=== PATIENT | female | born 1995 | race Caucasian/White ===

== ENCOUNTER 2023-03-15 13:01 | Outpatient (RCR) | payer BC, SELFPAY ==
[2023-03-13 12:05] LABS: Beta HCG Quantitative 108.93 mIU/ML
[2023-03-15 15:31] LABS: Beta HCG Quantitative 176.07 mIU/ML
== END 2023-06-11 23:59 | disposition home or self-care (01) ==
LOC: ANHLAB 13:01
PROVIDERS: Visit Provider Advanced Practice Midwife
DX: O20.0 Threatened abortion (principal); Z3A.00 Weeks of gestation of pregnancy not specified
CPT/HCPCS: 36415; 84702; 85461; 86850; 86900; 86901

== ENCOUNTER 2023-03-22 11:16 | Outpatient (CLI) | payer BC, SELFPAY ==
[2023-03-22 12:28] LABS: Beta HCG Quantitative 249.47 mIU/ML
== END 2023-03-22 11:17 | disposition home or self-care (01) ==
LOC: ANHLAB 11:19
PROVIDERS: Visit Provider Obstetrics & Gynecology
DX: O20.0 Threatened abortion (principal); Z3A.00 Weeks of gestation of pregnancy not specified
CPT/HCPCS: 36415; 84702

== ENCOUNTER 2023-03-24 12:03 | Outpatient (CLI) | payer BC, SELFPAY ==
[2023-03-24 12:45] LABS: Beta HCG Quantitative 101.59 mIU/ML
== END 2023-03-24 12:04 | disposition home or self-care (01) ==
LOC: ANHOBOP 12:05
PROVIDERS: Visit Provider Advanced Practice Midwife
DX: O20.0 Threatened abortion (principal)
CPT/HCPCS: 36415; 84702

== ENCOUNTER 2023-08-14 01:21 | Day surgery (SDC) | payer BC, SELFPAY ==
[2023-08-13 11:37] VITALS: BMI 33.1
--- NOTE | 2023-08-13 11:41 | PC.NURSE ---
Report to the Outpatient Waiting Room, entrance under the green pavilion located off [facility], at time 1100 on date 08/14/23. Planned Procedure Time: 1300. Time changes happen often and if your time is changed the preop area will call you the afternoon before. - You and your visitor will be asked to self-screen and do not enter if you have any COVID symptoms. - A mask is optional within the hospital at this time. Patients may have clear liquids (water, carbonated beverages, clear teas, apple juice) until 3 hours prior to surgery with a maximum of 20 ounces. - No food from midnight until time of surgery Take the following medications with a SIP of water the morning of surgery: N/A DO NOT STOP ANY OF YOUR OTHER PRESCRIPTION MEDICATIONS PRIOR TO SURGERY ?EXCEPT THE FOLLOWING Medications to discontinue per physician: N/A Date to take last dose: N/A Please no make-up, nail urdu, hairspray, perfume, deodorant, or body powder the day of surgery. No jewelry (including any body piercings) or valuables the day of surgery, leave them at home. Please take a shower or bath the night before, or the morning of, surgery with an antibacterial soap. Wear comfortable, loose fitting clothing. - Jewelry must be removed prior to entering the operating room. Rings and piercings that are not removed may be cut off. - The hospital will not accept responsibility for valuables. - Please leave all valuables, including medications, at home the day of surgery. If you are going home after surgery, a licensed wheelchair driver must drive you home. - NO public transportation without another adult if you receive anesthesia. - We recommend that an adult stay with you for 24 hours following discharge. - We also recommend that you do not drive, make important decision, drink alcoholic beverages, or take any drugs that were not prescribed by your health care provider for at least 24 hours after your discharge time. Follow any additional instructions given to you from your surgeon. If you or anyone in your household have experienced Covid symptoms in the past week, please notify your surgeon or the nurse liaison at the phone number below for possible testing. Telephone instructions given to PT - HARVEY FORTUNE and asked if any additional questions and then verbalized understanding. Patient advised to call surgeon office or pre surgery nurse liaison [phone] if any additional questions.
--- NOTE | 2023-08-14 11:06 | P.HP_ITS ---
H&P: HPI History of Present Illness Date/Time: 08/14/23 11:06 Chief Complaint: Missed miscarriage Narrative: Patient is a 27 year old who presents for suction D&C, indicated for missed miscarriage. She was diagnosed last week after an US demonstrated irregularly shaped gestational sac, no growth in size of embryo, and no FHR after having been visualized previously. She was counseled on r/b/a of expecta nt, medical, and surgical management, and desires to proceed with suction D&C. She denies bleeding, cramping, abdominal pain, fevers or chills today. She would like genetic testing performed on POC. Review of Systems Review of Systems: All systems reviewed & are unremarkable except as noted in HPI and below PMFSH Social History Social History Smoking status: Never smoker Alcohol intake: current Alcohol use details: RARE WHEN NOT Substance use: never Substance use type: does not use Living arrangements: with family Spiritual care concerns: No Meds Home Medications and Allergies Home Medications Medication Instructions Recorded Confirmed Type No Home Medications 08/13/23 08/13/23 History Allergies Allergy/AdvReac Type Severity Reaction Status Date / Time acetaminophen AdvReac Vomiting Verified 08/13/23 11:37 Exam Const: General: comfortable and no acute distress HENMT: Mouth: Yes moist mucous membranes Eyes: General: appearance normal, both eyes and all related structures Resp: Effort & Inspection: normal respiratory effort Cardio: Rate: regular rate Skin: General skin exam: normal color Extrem: General: normal to inspection Psych: Mental Status: mental status grossly normal Assessment and Plan Assessment and plan (1) Missed : Code(s): O02.1 - Missed Status: Acute Assessment and Plan: - diagnosed after US showed loss of FHR, no growth in FP - r/b/a of management options discussed - patient desires to proceed with suction D&C - will send POC for pathology and genetics
--- NOTE | 2023-08-14 13:00 | P.PNAN_ITS ---
Anes - Initial Pre Proc Eval Procedure: Operation Date: 08/14/23 13:00 Proposed Procedures p Suction Dilatation and Curettage - Micheal Pollock MD Date/Time: 08/14/23 13:00 Surgeon: Micheal Pollock MD Pre Op Diagnosis: missed ab Patient Data Age: 27 Gender: F Height: 1.63 m Weight: 87.55 kg Allergies Allergy/AdvReac Type Severity Reaction Status Date / Time acetaminophen AdvReac Vomiting Verified 08/13/23 11:37 Home Medications Medication Instructions Recorded Confirmed Type No Home Medications 08/13/23 08/13/23 History Patient hx anesthesia problems: none Family hx anesthesia problems: none Results Review: All pre-operative results and documents have been reviewed as part of the pre- operative evaluation. [facility] Social History Social History Smoking status: Never smoker Alcohol intake: current Alcohol use details: RARE WHEN NOT Substance use: never Substance use type: does not use Living arrangements: with family Spiritual care concerns: No Anes - Eval Final PreProcedure Day of Procedure 08/14/23 13:00 Patient weight: obese Heart: regular rate and rhythm Lungs: clear to auscultation Airway: Mallampati scale class II Neurological: alert and oriented Last oral intake: >/= 8 hours ASA classification: II Emergent: no Anesthetic plan: proceed Anesthesia type and monitoring: general GIVS and standard monitoring Results Review: All pre-operative results and documents have been reviewed as part of the pre- operative evaluation. Informed Consent: The patient's anesthetic plan and its attendant risks and benefits were discussed with the patient/family/POA. Questions were solicited and answers provided to the satisfaction of the patient/family/POA.
--- NOTE | 2023-08-14 13:30 | WPDHPUPDATE1 ---
History and Physical Update Update Date/Time: 08/14/23 13:30 History and Physical has been reviewed, including an updated exam of the patient. There are NO changes in the patient's condition. Risks, benefits, and alternatives have been discussed and questions answered. Patient agrees to proceed with procedure.
[2023-08-14 13:44] VITALS: BP 109/68; PULSE 75; RESP 16; TEMP 37.1; O2SAT 100; BMI 33.0
[2023-08-14] MEDS: LACTATED RINGERS 1,000 ML 30 ML IV CONT (13:48)
[2023-08-14] MEDS: LIDO 1%/EPINEPHRINE 1:100,000 50 ML VIAL 10 ML INFILTRATE (13:57)
--- NOTE | 2023-08-14 14:11 | W.PM.PROC2 ---
Procedure Note - Detailed Date of Procedure 08/14/23 Pre-op Diagnosis missed ab Post-op Diagnosis Same Procedure Performed suction D&C Surgeon Micheal Pollock MD Anesthesia MAC Description of Procedure The patient was then taken to the operating room with IVFs running. She was placed in the dorsal supine position where she received MAC anesthesia without any difficulty.?? The patient was placed in the dorsal lithotomy position using pam stirrups. She was then prepped and draped in a normal sterile fashion. A time-out procedure was performed and all members of the OR team agreed on the patient and plan. A bivalved speculum was then inserted into the patient's vagina.? The anterior lip of the cervix was grasped with a single tooth tenaculum. The 8mm suction curette was tested outside the patient and found to be working properly.? The curette was then advanced into the intrauterine cavity and circumferentially removed.? All products of conception were removed until little tissue was seen passing through the tubing.? A sharp curettage was then performed until a gritty texture was noted.? The specimen was sent to pathology.? The single tooth tenaculum was removed from the anterior lip of the cervix and made hemostatic with silver nitrite sticks.? The bivalve speculum was removed.? The patient tolerated the procedure well.? Sponge, lap, needle, and instrument counts were correct X3.? The patient was awakened from anesthesia and taken to the recovery room in stable condition. Estimated Blood Loss 30 Pathology Yes (pathology with genetics) Complications No immediate complications Condition Stable Disposition Same day
[2023-08-14 14:14] VITALS: BP 94/50; PULSE 93; RESP 16; O2SAT 96
[2023-08-14 14:45] VITALS: BP 95/54; PULSE 83; RESP 16
[2023-08-14 15:15] VITALS: BP 108/64; PULSE 79; RESP 16
[2023-08-14] MEDS: DOXYCYCLINE HYCLATE 100 MG TABLET PO (15:25)
== END 2023-08-14 15:34 | disposition home or self-care (01) ==
PROVIDERS: Visit Provider Obstetrics & Gynecology
PROC: (CPT 59820; principal; 2023-08-14 13:00)
DX: O02.1 Missed abortion (principal)
CPT/HCPCS: 59820; 36415; 85461; 86850; 86900; 86901; 88264; 88305; A9270; J2250; J2704; J3010; J7120

== ENCOUNTER 2023-10-08 12:44 | Observation (INO) | payer BC, SELFPAY ==
[2023-10-08] VITALS (9 sets, daily range): BP systolic 80–109; BP diastolic 42–64; PULSE 52–67; RESP 12–16; TEMP 36.2–36.7; O2SAT 93–100; BMI 32.5
--- NOTE | ~2023-10-08 | US_ITS ---
EXAMINATION: US pelvic complete w TV DATE: 10/08/2023 12:35 INDICATION: Vaginal bleeding TECHNIQUE: Multiple transabdominal and endovaginal sonographic images of the pelvis were obtained. COMPARISON: None. FINDINGS: The uterus measures 9.7 x 4.5 x 5.4 cm. The endometrial complex measures 15 mm in thickness. The pos terior margin of the endometrial complex is indistinct with heterogeneous mild increased myometrial e chogenicity in the more posterior uterine wall suspicious for focal adenomyomatosis. There are a few subcentimeter anechoic nabothian cysts at the cervix. The right ovary measures 3.8 x 2.2 x 3.5 cm. Th e left ovary measures 3.4 x 2.5 x 2.6 cm. Vascular flow identified at both ovaries on color Doppler. There are multiple subcentimeter peripherally predominant anechoic follicles in both ovaries suggesti ve of polycystic ovarian disease. There is no free fluid in the pelvis. IMPRESSION: 1. Endometrial complex at the upper limits of normal with indistinct posterior margin with heterogene ous increased echogenicity in the immediately adjacent myometrium of the posterior wall suspicious fo r focal adenomyosis. 2. Numerous peripheral predominant subcentimeter anechoic cysts at both ovaries suggestive of polycys tic ovarian disease. Reviewed, dictated and finalized at location A. IMPRESSION: 1. Endometrial complex at the upper limits of normal with indistinct posterior margin with heterogeneous increased echogenicity in the immediately adjacent my ometrium of the posterior wall suspicious for focal adenomyosis. 2. Numerous peripheral predominant subcentimeter anechoic cysts at both ovaries suggestive of polycystic ovarian disease.
[2023-10-08 10:24] LABS: Basophils Percent Auto 0.5 % (0.2-1.2); Eosinophils Absolute Auto 0.1 K/mm3 (0-0.3); Eosinophils Percent Auto 1.1 % (0-4.4); Hematocrit 37.1 % (37.0-47.0); Hemoglobin 12.2 g/dL (12.0-15.0); Immature Granulocyte Absolute 0.01 K/mm3 (0.00-0.031); Immature Granulocyte Percent A 0.2 % (0-0.5); Lymphocytes Absolute Auto 2.73 K/mm3 (0.9-3.2); Lymphocytes Percent Auto 41.3 % (18.3-44.2); Mean Corpuscular HGB Conc 32.9 g/dl (32-36); Mean Corpuscular Hemoglobin 28.7 pg (26-34); Mean Corpuscular Volume 87.3 fl (80-100); Mean Platelet Volume 11.3 fl (7.4-10.4); Monocytes Absolute Auto 0.3 K/mm3 (0.1-0.6); Monocytes Percent Auto 4.8 % (2.6-8.5); Neutrophils Absolute Auto 3.5 K/mm3 (1.3-6.7); Neutrophils Percent Auto 52.1 % (45.5-73.1); Platelet Count Result 250 k/mm3 (150-375); Red Blood Count 4.25 M/mm3 (4.2-5.4); White Blood Count 6.6 K/mm3 (4.5-10.0)
[2023-10-08 10:36] LABS: Alanine Aminotransferase 24 U/L (6-35); Albumin Level 4.7 g/dL (3.5-5.1); Alkaline Phosphatase 53 U/L (38-126); Anion Gap 6 mmol/L (4-12); Aspartate Amino Transferase 38 U/L (14-36); Bilirubin,Total 0.7 mg/dL (0.2-1.3); Blood Urea Nitrogen 12 mg/dL (7-17); Calcium 9.1 mg/dL (8.4-10.2); Carbon Dioxide 25 mmol/L (22-30); Chloride 106 mmol/L (98-107); Estimated Glomerular Filt Rate > 60; Glucose 98 mg/dL (65-110); Sodium 137 mmol/L (137-145)
[2023-10-08 10:52] LABS: Beta HCG Quantitative 11.22 mIU/ML
--- NOTE | 2023-10-08 10:52 | ADMGEN ---
This patient, Tessie Antonio, was admitted to Medical Room 251-01. Patient/family oriented to hospital policies and general routines including ID bracelet, bed and alarms, visiting hours, pain management, procedures, bathroom and other care routines, personal items, smoking policy, room service/diet, and visiting hours. Information on how to activate the Rapid Response Team has been discussed. Patient/Family are encouraged to report perceived risks to care and to ask questions if they do not understand what they are told or what they should do.
[2023-10-08] MEDS: LACTATED RINGERS 1,000 ML 999 ML IV CONT (12:38)
[2023-10-08] MEDS: LACTATED RINGERS 1,000 ML 100 ML IV CONT (13:45)
--- NOTE | 2023-10-08 15:08 | WPDANESEPPF ---
Anes - Initial Pre Proc Eval Procedure: Operation Date: 10/08/23 17:30 Proposed Procedures p Suction Dilatation and Curettage - Micheal Pollock MD Date/Time: 10/08/23 15:08 Surgeon: Micheal Pollock MD Pre Op Diagnosis: vagibal bleeding Patient Data Age: 27 Gender: F Height: 1.63 m Weight: 86 kg Last Vital Signs Temp 98.1 F 10/08/23 15:04 Pulse 60 10/08/23 15:04 Resp 16 10/08/23 15:04 BP 100/58 L 10/08/23 15:04 Pulse Ox 99 10/08/23 15:04 O2 Del Method Room Air 10/08/23 15:04 Allergies Allergy/AdvReac Type Severity Reaction Status Date / Time acetaminophen AdvReac Vomiting Verified 08/13/23 11:37 Home Medications Medication Instructions Recorded Confirmed Type No Home Medications 08/13/23 10/08/23 History Laboratory Tests 10/08/23 10:19 WBC 6.6 K/mm3 (4.5-10.0) RBC 4.25 M/mm3 (4.2-5.4) Hgb 12.2 g/dL (12.0-15.0) Hct 37.1 % (37.0-47.0) MCV 87.3 fl (80-100) MCH 28.7 pg (26-34) MCHC 32.9 g/dl (32-36) RDW 12.0 % (11.5-14.5) Plt Count 250 k/mm3 (150-375) MPV 11.3 H fl (7.4-10.4) Immature Gran % (Auto) 0.2 % (0-0.5) Neut % (Auto) 52.1 % (45.5-73.1) Lymph % (Auto) 41.3 % (18.3-44.2) Cocke % (Auto) 4.8 % (2.6-8.5) Eos % (Auto) 1.1 % (0-4.4) Baso % (Auto) 0.5 % (0.2-1.2) Lymph # (Auto) 2.73 K/mm3 (0.9-3.2) Cocke # (Auto) 0.3 K/mm3 (0.1-0.6) Eos # (Auto) 0.1 K/mm3 (0-0.3) Baso # (Auto) 0.0 K/mm3 (0.0-0.1) Abs Immat Gran (auto) 0.01 K/mm3 (0.00-0.031) Absolute Neuts (auto) 3.5 K/mm3 (1.3-6.7) Absolute Nucleated RBC 0.000 K/mm3 (0.0-0.012) Nucleated RBC % 0.0 % (0.0-0.2) Sodium 137 mmol/L (137-145) Potassium 4.0 mmol/L (3.4-5.0) Chloride 106 mmol/L (98-107) Carbon Dioxide 25 mmol/L (22-30) Anion Gap 6 mmol/L (4-12) BUN 12 mg/dL (7-17) Creatinine 0.70 mg/dL (0.7-1.0) Estim Creat Clear Calc Not Reportable Estimated GFR > 60 (59 - ) Glucose 98 mg/dL (65-110) Calcium 9.1 mg/dL (8.4-10.2) Total Bilirubin 0.7 mg/dL (0.2-1.3) AST 38 H U/L (14-36) ALT 24 U/L (6-35) Alkaline Phosphatase 53 U/L (38-126) Total Protein 8.0 g/dL (6.3-8.2) Albumin 4.7 g/dL (3.5-5.1) Beta HCG, Quant 11.22 mIU/ML Patient hx anesthesia problems: none Family hx anesthesia problems: none Results Review: All pre-operative results and documents have been reviewed as part of the pre-operative evaluation. [facility] Social History Social History Smoking status: Never smoker Alcohol intake: current Drinks per week: 0 Alcohol use details: RARE WHEN NOT Substance use: never Substance use type: does not use Do You Feel Safe in your Home?: Yes Lack of Transportation: No Lack of Food: Never True Current Housing: I Have Housing Concerned About Future Housing: No Difficulty Paying Gas/Electric Bills: No Difficulty Paying for Meds: No Currently Unemployed: No Education: Master's Degree or Higher Difficulty w/ Childcare or Family Care: No Living arrangements: with family Spiritual care concerns: No Anes - Eval Final PreProcedure Day of Procedure 10/08/23 15:08 Patient weight: overweight Heart: regular rate and rhythm Lungs: clear to auscultation Airway: Mallampati scale class II Neurological: alert and oriented Last oral intake: >/= 8 hours ASA classification: II Emergent: no Anesthetic plan: proceed Anesthesia type and monitoring: general GIVS and standard monitoring Results Review: All pre-operative results and documents have been reviewed as part of the pre-operative evaluation. Informed Consent: The patient's anesthetic plan and its attendant risks and benefits were discussed with the patient/family/POA. Questions were solicited and answers provided
--- NOTE | 2023-10-08 15:27 | PM.IMHP ---
H&P: HPI History of Present Illness Date/Time: 10/08/23 15:27 Chief Complaint: vaginal bleeding Narrative: Patient presents from the office for vaginal bleeding followng D&C in july. She has been followed with serial hCG and while decreasing, she started having heavy bleeding on Saturday, soaking 1 pad per hour. THis morning she reports passing out at home, some dizziness and lightheadedness over the past few days. Denies fevers or chills. Patient admitting for further evaluation and possible surgery. [facility] Social History Social History Smoking status: Never smoker Alcohol intake: current Drinks per week: 0 Alcohol use details: RARE WHEN NOT Substance use: never Substance use type: does not use Do You Feel Safe in your Home?: Yes Lack of Transportation: No Lack of Food: Never True Current Housing: I Have Housing Concerned About Future Housing: No Difficulty Paying Gas/Electric Bills: No Difficulty Paying for Meds: No Currently Unemployed: No Education: Master's Degree or Higher Difficulty w/ Childcare or Family Care: No Living arrangements: with family Spiritual care concerns: No Meds Home Medications and Allergies Home Medications Medication Instructions Recorded Confirmed Type No Home Medications 08/13/23 10/08/23 History Allergies Allergy/AdvReac Type Severity Reaction Status Date / Time acetaminophen AdvReac Vomiting Verified 08/13/23 11:37 Vital Signs Vital Signs - 24 hr 10/08/23 11:36 10/08/23 14:00 10/08/23 15:04 Temperature 97.6 F 98.1 F Pulse Rate 62 60 Respiratory Rate 14 16 Blood Pressure 109/64 100/58 L Pulse Oximetry 100 99 Oxygen Delivery Room Air Room Air Exam Const: General: comfortable and no acute distress HENMT: Mouth: Yes moist mucous membranes Eyes: General: appearance normal, both eyes and all related structures Resp: Effort & Inspection: normal respiratory effort Cardio: Rate: regular rate Skin: General skin exam: normal color Extrem: General: normal to inspection Psych: Mental Status: mental status grossly normal H&P: Results Labs Labs: Short CBC 10/08/23 Range/Units 10:19 WBC 6.6 (4.5-10.0) K/mm3 Hgb 12.2 (12.0-15.0) g/dL Hct 37.1 (37.0-47.0) % Plt Count 250 (150-375) k/mm3 BMP 10/08/23 10:19 Sodium 137 Potassium 4.0 Chloride 106 Carbon Dioxide 25 BUN 12 Creatinine 0.70 Glucose 98 Calcium 9.1 Liver Function 10/08/23 Range/Units 10:19 Total Bilirubin 0.7 (0.2-1.3) mg/dL AST 38 H (14-36) U/L ALT 24 (6-35) U/L Alkaline Phosphatase 53 (38-126) U/L Albumin 4.7 (3.5-5.1) g/dL Assessment and Plan Assessment and plan (1) Vaginal bleeding: Code(s): N93.9 - Abnormal uterine and vaginal bleeding, unspecified Status: Acute Assessment and Plan: - s/p D&C in July for missed Ab - bleeding worsened Saturday, soaking 1 pad per hour and with associated nausea and dizziness - exam wnl today in office - Hcg 11, downtrending - pelvic US with thickened and vascular endometrium, concerning for retained products - r/b/a of suction D&C discussed with patient who owuld like to proceed with surgery - surgery scheduled for today
--- NOTE | 2023-10-08 15:30 | WPDHPUPDATE1 ---
History and Physical Update Update Date/Time: 10/08/23 15:30 History and Physical has been reviewed, including an updated exam of the patient. There are NO changes in the patient's condition. Risks, benefits, and alternatives have been discussed and questions answered. Patient agrees to proceed with procedure.
[2023-10-08] MEDS: KETOROLAC 30 MG/ML VIAL (*BKC) IM (15:59)
[2023-10-08] MEDS: LACTATED RINGERS 1,000 ML 30 ML IV CONT (16:04)
--- NOTE | 2023-10-08 16:15 | W.PM.PROC2 ---
Procedure Note - Detailed Date of Procedure 10/08/23 Pre-op Diagnosis vaginal bleeding, dizziness Post-op Diagnosis Same Procedure Performed suction D&C Surgeon Micheal Pollock MD Anesthesia MAC Indications continued vaginal bleeding and thickened endometrium s/p D&C 08/14 Findings moderate amount of tissue removed with suction; normal thin endometrial stripe following procedure on ultrasound Description of Procedure The patient was then taken to the operating room with IVFs running. She was placed in the dorsal supine position where she received MAC anesthesia without any difficulty.?? The patient was placed in the dorsal lithotomy position using pam stirrups. She was then prepped and draped in a normal sterile fashion. A time-out procedure was performed and all members of the OR team agreed on the patient and plan. A bivalved speculum was then inserted into the patient's vagina.? The anterior lip of the cervix was grasped with a single tooth tenaculum. The 8mm suction curette was tested outside the patient and found to be working properly.? The curette was then advanced into the intrauterine cavity and circumferentially removed.? All products of conception were removed until little tissue was seen passing through the tubing.? A sharp curettage was then performed until a gritty texture was noted.?A bedside ultrasound was performed and the endometrial stripe was confirmed to be thin and homogenous. The specimen was sent to pathology.? The single tooth tenaculum was removed from the anterior lip of the cervix and made hemostatic with held pressure.? The bivalve speculum was removed.? The patient tolerated the procedure well.? Sponge, lap, needle, and instrument counts were correct X3.? The patient was awakened from anesthesia and taken to the recovery room in stable condition. Estimated Blood Loss 30 Pathology Yes (pathology with genetics) Complications No immediate complications Condition Stable Disposition Same day
--- NOTE | 2023-10-09 22:01 | PM.DS ---
DS: Admitting Diagnosis Discharge Date 10/08/23 Admitting Diagnosis vaginal bleeding DS: Discharge Diagnosis Discharge Diagnosis (1) Vaginal bleeding: Code(s): N93.9 - Abnormal uterine and vaginal bleeding, unspecified Status: Acute Assessment and Plan: - s/p D&C 08/14 - concern for retained products of conception vs thickened endometrium on US - after discussion of r/b/a patient agreeable to repeat suction D&C - patient tolerated the procedure well - d/c home postop DS: Summary Hospital Course Hospital Course: Patient was admitted from the office for heavy vaginal bleeding following D&C on 08/14. Bleeding started 10/01 and continued since that time, moderate to heavy in flow. She denies nausea, vomiting, fevers or chills. No abdominal pain. She was at home this morning and reports falling to the ground, however denies loss of consciousness. She was admitted for further workup. Although bloodwork was unremarkable, pelvic US demonstrated thickened and vascular endometrium, concerning for retained products of conception vs abnormal endometrium. After discussion of r/b/a with patient, she agreed to proceed with suction D&C under ultrasound guidance. She tolerated the procedure well and was meeting postop milestones. She was discharged home on HD#0. Time Spent with Patient Time attestation: Total time spent providing and/or coordinating discharge services: Exam Const: General: comfortable and no acute distress HENMT: Mouth: Yes moist mucous membranes Eyes: General: appearance normal, both eyes and all related structures Resp: Effort & Inspection: normal respiratory effort Cardio: Rate: regular rate Skin: General skin exam: normal color Extrem: General: normal to inspection Psych: Mental Status: mental status grossly normal DS: Data Data Completed and Pending Pending studies at discharge: Pending at discharge 10/08/23 15:53 Surgical [PTH] Routine Discharge Plan Discharge Attending physician on discharge: Micheal Pollock Consulting providers: Gary Garcia; Michael Gooden Discharging Clinician: Micheal Pollock Patient Disposition: Home, Self-Care Activity: may shower Diet: as tolerated Discharge Instructions: The cervix does not immediately close after a D&C, so it is important to follow these instructions to avoid an infection or other complications. 1.? Bleeding may be irregular after the procedure.? A few women do not bleed at all following the procedure, which is normal for them. 2.? Your next normal period should begin in 4-8 weeks.? It is possible to get before your first period begins.? Therefore you should use control if is undesirable. 3.? You may have some cramping, similar to menstrual cramps.? If so, you may take your usual pain medication.? If this is not sufficient, you should call our office. 4.? You may experience discomfort in your legs.? This is due to the position of your legs in the stirrups during the surgery. 5.? If you have fever over 100.4 degrees for more than a few hours, call our office. 6.? You may eat or drink anything that you like and return to your usual activities.? Be guided by how you feel. 7.? You may return to work in 1-2 days. 8.? Avoid tampons, douching or sexual intercourse for 2 weeks. 9.? You may shower or tub bathe. 10. If you have heavy bleeding (saturating more than 2 pads in 1 hour) or pass large clots, please call the office. Patient Instructions: Antibiotic Form Stand Alone Forms: General Discharge Information Follow-up/Referrals: Micheal Pollock MD [Physician] - 2 Weeks Discharge Medications: New doxycycline hyclate 100 mg capsule 100 mg PO DAILY Qty: 14 0RF Date of admission: 10/08/23 12:44 Primary Care Provider: PHYSICIAN,POT SANDER Admitting Provider: Micheal Pollock Attending physician on admission: Micheal Pollock Condition: Stable
== END 2023-10-08 18:25 | disposition home or self-care (01) ==
PROVIDERS: Admitting Provider Obstetrics & Gynecology; Visit Provider Obstetrics & Gynecology
PROC: (CPT 59812; principal; 2023-10-08 17:30)
DX: O03.4 Incomplete spontaneous abortion without complication (principal); R42 Dizziness and giddiness; Z98.890 Other specified postprocedural states
CPT/HCPCS: 59812; 36415; 76830; 76856; 80053; 84702; 85025; 88305; G0378; G0379; J1885; J2250; J2405; J2704; J3010; J7120